=== PATIENT | male | born 1970 | race Caucasian/White ===

== ENCOUNTER → 2017-11-14 | Day surgery (SDC) | payer BC ==
[~2017-11-14] MED LIST: Lactated Ringers 1,000 ML IV SCH; Propofol 200 MG/20 ML SDV IV ONE
[2017-11-14 11:11] VITALS: BP 129/54
--- NOTE | 2017-11-14 13:00 | OR ---
DATE OF OPERATION: 11/14/2017 PREOPERATIVE DIAGNOSIS: 1. GASTROESOPHAGEAL REFLUX DISEASE. 2. ALTERED BOWEL HABITS. POSTOPERATIVE DIAGNOSIS: 1. GASTROESOPHAGEAL REFLUX DISEASE. 2. ALTERED BOWEL HABITS. SURGEON: Maico Montenegro MD PROCEDURE: 1. ESOPHAGOGASTRODUODENOSCOPY. 2. FULL-LENGTH COLONOSCOPY. ANESTHESIA: CARTON STAPLER due to chronic liver failure. COMPLICATIONS: None. SPECIMEN: None. FINDINGS: 1. Full-length EGD. 2. Chronic appearing gastritis. 3. Hiatal hernia with GERD. No esophagitis seen. 4. No obvious esophageal or gastric varices. 5. Full-length colonoscopy. 6. Multiple areas of angiodysplasia colon. RECOMMENDATIONS: Medical followup with Dr. Medellin. INDICATIONS: The patient has a recent diagnosis of alcoholic liver disease and has seen Hepatology in the next few months, Dr. Medellin because the patient has apparently been having some reflux and altered bowels, sent him for upper and lower endoscopy. It is worthy to note that the patient's last INR was 1.6. DESCRIPTION OF PROCEDURE: The patient was prepped and draped, placed in the left lateral decubitus position. A lubricated Olympus gastroscope was inserted over a bit and advanced to cricopharyngeus area and easily intubated in the esophagus. Esophageal lining was benign in its entire course. The Z-line was crisp around 37 cm. There was a mild sized hiatal hernia with some spontaneous GERD, but no distal esophagitis, stricturing, ulceration, or Bhakta's changes. No gross signs of any distal esophageal varices. The scope was advanced in the stomach through the pylorus into the second portion of the duodenum. This and the duodenal bulb were benign. The scope was brought back into the stomach, retroflexed the upper fundus and cardia essentially benign. Most of the mid and distal fundus and antrum showed changes of chronic gastritis without any other polyps, masses, or active peptic ulcer disease. Because of his elevated INR, no biopsies were done. Air was suctioned from the stomach and the scope was removed safely without complication. A lubricated Olympus colonoscope was then inserted and with relative ease advanced to the cecum, and the patient's bowel prep was adequate. We were able to visualize the ileocecal valve and appendiceal orifice. Upon withdrawal, the patient does have 2 larger areas of angiodysplasia, 1 right in the cecum which is smaller and the larger one just outside in the proximal ascending colon. He had a few 3 or 4 more smaller areas of angiodysplasia as well, 1 in the transverse, 2 in the sigmoid. These were not biopsied again due to the patient's elevated INR. Throughout the length of the colon, I could find no polyps, mass, ulceration, or bleeding sites. No signs of any active colitis or diverticular disease and no polyps found. Retroflexion of the scope in the rectum showed no anal lesions. Air was suctioned. Scope was removed without complication. WILEY/BA /[id number]
== END ==
LOC: CC.SDS 09:15
PROVIDERS: ATTEND Family Medicine
DX: K21.9 Gastro-esophageal reflux disease without esophagitis (principal); R19.4 Change in bowel habit; K29.50 Unspecified chronic gastritis without bleeding; K44.9 Diaphragmatic hernia without obstruction or gangrene; K55.20 Angiodysplasia of colon without hemorrhage
CPT/HCPCS: 43235; 45378; J7120; J2704

== ENCOUNTER 2018-03-18 11:57 | Emergency (ER) | payer BC ==
--- NOTE | 2018-03-18 12:38 | EDM.PDOC ---
ED HPI GENERAL MEDICAL PROBLEM - General Chief Complaint: Laceration Stated Complaint: LT HAND LACERATION Time Seen by Provider: 03/18/18 12:15 Source of Information: Reports: Patient History Limitations: Reports: No Limitations - History of Present Illness INITIAL COMMENTS - FREE TEXT/NARRATIVE: Sadi is a 47 yo male who presents to the ER with concerns of a cut to the base of his left thumb. States he was winterizing the sprayer and mower and ended up catching the base of his thumb on something. No loss of sensation or range of motion of thumb. He states he isn't exactly sure how deep it is. Tetanus was updated last year. is present as well and would like a sodium rechecked. She states last week his sodium was 115 and they elected to stop his furosemide and spironlactone. He states his liver is failing and is waiting to be put on a transplant list. He states since stopping the diuretics he has gained about 10 lbs from last week. Location: Reports: Upper Extremity, Left Treatments ITEM REPAIR MANAGER: Reports: Other (see below) Other Treatments ITEM REPAIR MANAGER: pressure held Left Hand Pain Score (Numeric/FACES): 2 - Related Data Allergies Allergy/AdvReac Type Severity Reaction Status Date / Time No Known Allergies Allergy Verified 03/18/18 12:24 Home Meds: Home Meds Amitriptyline HCl 25 mg PO BEDTIME 09/28/15 [History] Cholecalciferol (Vitamin D3) [Vitamin D3] 5,000 unit PO DAILY 09/28/15 [History] Ferrous Sulfate 325 mg PO Q48H 09/28/15 [History] Folic Acid 1 mg PO DAILY 10/03/17 [History] Insulin Detemir [Levemir] 30 unit SUBCUT BEDTIME #1 pen 02/10/18 [Rx] Lactulose [Cephulac] 20 gm PO TID 03/18/18 [History] Rifaximin [Xifaxan] 550 mg PO BID 03/18/18 [History] Simvastatin 10 mg PO BEDTIME 03/18/18 [History] Vitamin A 25,000 units PO DAILY 03/18/18 [History] Zinc 50 mg PO DAILY 03/18/18 [History] Past Medical History HEENT History: Reports: None Cardiovascular History: Reports: High Cholesterol, Hypertension Respiratory History: Reports: Sleep Apnea Gastrointestinal History: Reports: Cirrhosis Psychiatric History: Reports: Addiction Other Psychiatric History: alcohol addiction for past 30 years. Endocrine/Metabolic History: Reports: Diabetes, Type II - Past Surgical History HEENT Surgical History: Reports: Other (See Below) Other HEENT Surgeries/Procedures: WISDOM TEETH REMOVED. Male Surgical History: Reports: Vasectomy Social & Family History - Family History Endocrine/Metabolic: Reports: Diabetes, type II - Tobacco Use Smoking Status *Q: Never Smoker - Caffeine Use Caffeine Use: Reports: None - Recreational Drug Use Recreational Drug Use: No - Living Situation & Occupation Living situation: Reports: , with Significant Other Occupation: Employed ED ROS GENERAL - Review of Systems Review Of Systems: ROS reveals no pertinent complaints other than HPI. ED EXAM, SKIN/RASH Exam: See Below Exam Limited By: No Limitations General Appearance: Alert, No Apparent Distress Respiratory/Chest: No Respiratory Distress, Lungs Clear Cardiovascular: Regular Rate, Rhythm, No Murmur Peripheral Pulses: 2+: Posterior Tibial (L), Posterior Tibial (R), Dorsalis Pedis (L), Dorsalis Pedis (R) GI/Abdominal: Distended (ascites present). No: Rebound, Tender, Abnormal Bowel Sounds, Mass, Hepatomegaly, Splenomegaly Extremities: Normal Range of Motion, Other (Full strength and ROM of left thumb. ) Neurological: Alert, Oriented, Normal Cognition, No Motor/Sensory Deficits Psychiatric: Normal Affect, Normal Mood Skin: Wound/Incision (1cm ) ED SKIN PROCEDURES - Laceration/Wound Repair Left Proximal Digit - 1st (Thumb) Lac/Wound length In cm: 1 Appearance: Superficial Distal NVT: Neuro & Vascular Intact, No Tendon Injury Skin Prep: Chlorhexidine (Hibiciens) Exploration/Debridement/Repair: Wound Explored, In a Bloodless Field Closed with: Dermabond Tetanus Status Addressed: Yes Complications: No Course - Vital Signs Last Recorded V/S: Last Vital Signs Temp 98.9 F 03/18/18 12:07 Pulse 110 H 03/18/18 12:07 Resp 18 03/18/18 12:07 BP 158/80 H 03/18/18 12:07 Pulse Ox 94 L 03/18/18 12:07 - Orders/Labs/Meds Labs: Laboratory Tests 03/18/18 Range/Units 12:20 Sodium 139 (136-145) mEq/L Potassium 3.9 D (3.5-5.0) mEq/L Chloride 105 (98-106) mEq/L Carbon Dioxide 25 (21-32) mmol/L BUN 7 (7-18) mg/dL Creatinine 0.6 L (0.7-1.3) mg/dL Est Cr Clr Drug Dosing 138.82 mL/min Estimated GFR (MDRD) > 60 (>=60) mL/min Glucose 109 H (75-99) mg/dL Calcium 8.6 (8.4-10.1) mg/dL Departure - Departure Time of Disposition: 12:39 Disposition: Home, Self-Care 01 Clinical Impression: Laceration of thumb Qualifiers: Encounter type: initial encounter Damage to nail status: without damage Foreign body presence: without foreign body Laterality: left Qualified Code(s): S61.012A - Laceration without foreign body of left thumb without damage to nail , initial encounter - Discharge Information Instructions: Stitches, Emerson, or Adhesive Wound Closure, [id number], Wound Care, Adult Forms: ED Department Discharge Additional Instructions: 1) Wound closed with Dermabond today 2) Recommend refraining from soaking hand for next 48 hrs 3) Tetanus addressed and no update needed 4) If any sign of infection or concerns, recommend returning for reevaluation 5) Sodium is normal at 139 today, will discuss with Dr. Montenegro about restarting diuretic vs paracentesis. - Problem List & Annotations (1) Laceration of thumb SNOMED Code(s): 924200055 Code(s): S61.019A - LACERATION W/O FOREIGN BODY OF THMB W/O DAMAGE TO NAIL, INIT Status: Acute Qualifiers: Encounter type: initial encounter Damage to nail status: without damage Foreign body presence: without foreign body Laterality: left Qualified Code( s): S61.012A - Laceration without foreign body of left thumb without damage to nail, initial encounter - Assessment/Plan Plan: See procedural note and additional instructions.
[2018-03-18 12:48] VITALS: BP 166/79
== END 2018-03-18 12:50 | disposition home or self-care (01) ==
LOC: CC.ED 11:57
DX: S61.012A Laceration without foreign body of left thumb without damage to nail, initial encounter (principal); E78.00 Pure hypercholesterolemia, unspecified; I10 Essential (primary) hypertension; E11.9 Type 2 diabetes mellitus without complications; Z79.899 Other long term (current) drug therapy; Z79.4 Long term (current) use of insulin; W23.1XXA Caught, crushed, jammed, or pinched between stationary objects, initial encounter; K70.30 Alcoholic cirrhosis of liver without ascites
CPT/HCPCS: 12001; 36415; 80053; 99283

== ENCOUNTER 2018-04-17 02:10 | Emergency (ER) | payer BC ==
[2018-04-17 02:49] LABS: CHLORIDE,CL 89 mEq/L (98-106)
[2018-04-17 02:50] LABS: SODIUM,NA 123 mEq/L (136-145)
--- NOTE | 2018-04-17 02:51 | EDM.PDOC ---
ED HPI GENERAL MEDICAL PROBLEM - General Chief Complaint: Abdominal Pain Stated Complaint: "I vomitted some blood" Time Seen by Provider: 04/17/18 02:45 Source of Information: Reports: Patient, Family History Limitations: Reports: No Limitations - History of Present Illness INITIAL COMMENTS - FREE TEXT/NARRATIVE: Has not been feeling well since later yesterday. He vomited prior to coming in and it had bright red blood in it. states that it was in the toilet and it is hard to determine how much blood was in it. He did not take any zofran today. Feels weak and has been having low back pain that he applied ice to with minimal relief. No diarrhea. Has history of liver failure. Onset: Gradual Location: Reports: Abdomen Quality: Reports: Ache Lower Abdomen Pain Score (Numeric/FACES): 2 - Related Data Allergies Allergy/AdvReac Type Severity Reaction Status Date / Time No Known Allergies Allergy Verified 03/18/18 12:24 Home Meds: Home Meds Amitriptyline HCl 25 mg PO BEDTIME 09/28/15 [History] Cholecalciferol (Vitamin D3) [Vitamin D3] 5,000 unit PO DAILY 09/28/15 [History] Ferrous Sulfate 325 mg PO Q48H 09/28/15 [History] Folic Acid 1 mg PO DAILY 10/03/17 [History] Insulin Detemir [Levemir] 30 unit SUBCUT BEDTIME #1 pen 02/10/18 [Rx] Lactulose [Cephulac] 15 gm PO TID 03/18/18 [History] Rifaximin [Xifaxan] 550 mg PO BID 03/18/18 [History] Simvastatin 5 mg PO BEDTIME 03/18/18 [History] Vitamin A 25,000 units PO DAILY 03/18/18 [History] Zinc 50 mg PO DAILY 03/18/18 [History] Furosemide [Lasix] 60 mg PO DAILY 04/17/18 [History] Ondansetron [Zofran Odt] 8 mg PO Q6H PRN 04/17/18 [History] Spironolactone [Aldactone] 150 mg PO DAILY 04/17/18 [History] Past Medical History HEENT History: Reports: None Cardiovascular History: Reports: High Cholesterol, Hypertension Respiratory History: Reports: Sleep Apnea Gastrointestinal History: Reports: Chronic Constipation, Cirrhosis Psychiatric History: Reports: Addiction Other Psychiatric History: alcohol addiction for past 30 years. Endocrine/Metabolic History: Reports: Diabetes, Type II - Past Surgical History HEENT Surgical History: Reports: Other (See Below) Other HEENT Surgeries/Procedures: WISDOM TEETH REMOVED. Male Surgical History: Reports: Vasectomy Social & Family History - Family History Endocrine/Metabolic: Reports: Diabetes, type II - Tobacco Use Smoking Status *Q: Never Smoker Second Hand Smoke Exposure: No - Caffeine Use Caffeine Use: Reports: None - Recreational Drug Use Recreational Drug Use: No - Living Situation & Occupation Living situation: Reports: , with Significant Other Occupation: Employed ED ROS GENERAL - Review of Systems Review Of Systems: See Below Constitutional: Reports: Weakness. Denies: Fever, Chills Respiratory: Reports: No Symptoms Cardiovascular: Reports: No Symptoms GI/Abdominal: Reports: Hematemesis, Nausea, Vomiting. Denies: Black Stool Musculoskeletal: Reports: Back Pain Neurological: Denies: Confusion, Headache ED EXAM, GI/ABD - Physical Exam Exam: See Below Exam Limited By: No Limitations General Appearance: Alert, Mild Distress Throat/Mouth: Normal Inspection, Normal Oropharynx Head: Atraumatic, Normocephalic Neck: Supple Respiratory/Chest: No Respiratory Distress, Lungs Clear, Normal Breath Sounds Cardiovascular: Regular Rate, Rhythm, No Edema, Tachycardia GI/Abdominal Exam: Normal Bowel Sounds, Soft, Distended Extremities: No Pedal Edema Neurological: Alert, Oriented Skin Exam: Warm, Dry, Intact Course - Vital Signs Last Recorded V/S: Last Vital Signs Temp 98 F 04/17/18 08:50 Pulse 113 H 04/17/18 08:50 Resp 20 04/17/18 08:50 BP 150/69 H 04/17/18 08:50 Pulse Ox 94 L 04/17/18 08:50 - Orders/Labs/Meds Orders: Active Orders 24 hr Category Date Time Status Pantoprazole [ProTONIX IV] Med 04/17/18 09:00 Ordered 40 mg IVPUSH Q24H Sodium Chloride 0.9% [Normal Saline] 1,000 ml Med 04/17/18 03:15 Active IV ASDIRECTED Medication Orders Sodium Chloride (Normal Saline) 1,000 mls @ 100 mls/hr IV ASDIRECTED CESAR Last Admin: 04/17/18 03:31 Dose: 100 mls/hr Labs: Laboratory Tests 04/17/18 04/17/18 04/17/18 Range/Units 02:35 02:35 07:55 WBC 11.0 H (5.0-10.0) 10^3/uL RBC 4.65 (4.50-6.00) 10^6/uL Hgb 13.8 L 12.9 L (14.0-18.0) g/dL Hct 39.3 L 37.7 L (40.0-54.0) % MCV 84.5 (82.0-94.0) fL MCH 29.7 (27.0-32.0) pg MCHC 35.1 (33.0-38.0) g/dL RDW Coeff of Nidia 17.0 H (11.0-15.0) % Plt Count 101 L (150-400) 10^3/uL Neut % (Auto) 76.5 (35-85) % Lymph % (Auto) 9.3 L (10-55) % [place] % (Auto) 11.2 (0-16) % Eos % (Auto) 2.5 (0-5) % Baso % (Auto) 0.5 (0-3) % Neut # (Auto) 8.39 H (1.80-7.00) 10^3/uL Lymph # (Auto) 1.02 (1.00-4.80) 10^3/uL [place] # (Auto) 1.23 H (0.00-0.80) 10^3/uL Eos # (Auto) 0.27 (0.00-0.45) 10^3/uL Baso # (Auto) 0.05 10^3/uL Sodium 123 L* (136-145) mEq/L Potassium 4.2 (3.5-5.0) mEq/L Chloride 89 L (98-106) mEq/L Carbon Dioxide 26 (21-32) mmol/L BUN 15 D (7-18) mg/dL Creatinine 0.7 (0.7-1.3) mg/dL Est Cr Clr Drug Dosing TNP Estimated GFR (MDRD) > 60 (>=60) mL/min Glucose 160 H D (75-99) mg/dL Calcium 9.3 (8.4-10.1) mg/dL Meds: Medications Generic Name Dose Route Start Last Admin Trade Name Freq PRN Reason Stop Dose Admin Sodium Chloride 1,000 mls @ 100 mls/hr 04/17/18 03:15 04/17/18 03:31 Normal Saline IV 100 mls/hr ASDIRECTED CESAR Administration Discontinued Medications Generic Name Dose Route Start Last Admin Trade Name Nayely PRN Reason Stop Dose Admin Ondansetron HCl 8 mg/ Sodium 54 mls @ 100 mls/hr 04/17/18 03:03 04/17/18 03: 30 Chloride IV 04/17/18 03:35 100 mls/hr NOW STA Administration - Re-Assessments/Exams Free Text/Narrative Re-Assessment/Exam: 04/17/18 03:02 sodium is low. Will keep as extended ER and start NS at 100 ml hour and give zofran 8 mg IV now for the nausea and monitor for any further vomiting or blood. Hgb currently is stable. 04/17/18 08:[address] Montenegro and he feels that he should be transferred as he will not scope him due to his comorbidities. Did discuss case with Dr. Avalos as he is a mutual patient of both of them and he feels that he should be scoped as he is liver failure patient and on the transplant list at [place]. There is a concern for varicosities that potential can bleed. BP is stable, pt is tachycardiac. Hgb is stable and this info was relayed to Dr. Avalos. [address] Dr[address] De Anda at [facility] did accept the patient in transfer. He will transfer per ALS with IV fluids and monitoring to watch for further bleeding. risks of transfer were discussed with pt and to include MVC in route, worsening of condition. Risks of staying would include further bleeding that would not be able to be controlled here and worsening of conditioning. Benefits of transfer would include specialists that would care for him and higher level of care that is available there. Pt and both understand above and request to be transferred. Departure - Departure Time of Disposition: 09:10 Disposition: DC/Tfer to Acute Hospital 02 Condition: Serious Clinical Impression: GI bleed Qualifiers: GI bleed type/associated pathology: unspecified gastrointestinal hemorrhage type Qualified Code(s): K92.2 - Gastrointestinal hemorrhage, unspecified Cirrhosis, alcoholic Qualifiers: Ascites presence: with ascites Qualified Code(s): K70.31 - Alcoholic cirrhosis of liver with ascites Diabetes mellitus Qualifiers: Diabetes mellitus type: type 2 Diabetes mellitus longwall headgate operator insulin use: with longwall headgate operator use Diabetes mellitus complication status: with other specified complication Qualified Code(s): E11.69 - Type 2 diabetes mellitus with other specified complication - Discharge Information *PRESCRIPTION DRUG MONITORING PROGRAM REVIEWED*: No *COPY OF PRESCRIPTION DRUG MONITORING REPORT IN PATIENT SRAVANTHI: No Referrals: Maico oMntenegro MD [Primary Care Provider] - Forms: ED Department Discharge Additional Instructions: Transfer per [facility] to [facility] to Dr. Adilson mcclellan MD. - Problem List & Annotations (1) GI bleed SNOMED Code(s): 56560940 Code(s): K92.2 - GASTROINTESTINAL HEMORRHAGE, UNSPECIFIED Status: Acute Priority: High Current Visit: Yes Qualifiers: GI bleed type/associated pathology: unspecified gastrointestinal hemorrhage type Qualified Code(s): K92.2 - Gastrointestinal hemorrhage, unspecified (2) Cirrhosis, alcoholic SNOMED Code(s): 658000648 Code(s): K70.30 - ALCOHOLIC CIRRHOSIS OF LIVER WITHOUT ASCITES Status: Chronic Priority: High Current Visit: Yes Qualifiers: Ascites presence: with ascites Qualified Code(s): K70.31 - Alcoholic cirrhosis of liver with ascites (3) Diabetes mellitus SNOMED Code(s): 54169686 Code(s): E11.9 - TYPE 2 DIABETES MELLITUS WITHOUT COMPLICATIONS Status: Chronic Priority: Medium Current Visit: Yes Qualifiers: Diabetes mellitus type: type 2 Diabetes mellitus longwall headgate operator insulin use: with longwall headgate operator use Diabetes mellitus complication status: with other specified complication Qualified Code(s): E11.69 - Type 2 diabetes mellitus with other specified complication; Z79.4 - remote computer terminal operator (current) use of insulin - Problem List Review Problem List Initiated/Reviewed/Updated: Yes - My Orders Last 24 Hours: My Active Orders 04/17/18 03:15 Sodium Chloride 0.9% [Normal Saline] 1,000 ml IV ASDIRECTED 04/17/18 09:00 Pantoprazole [ProTONIX IV] 40 mg IVPUSH Q24H - Assessment/Plan Last 24 Hours: My Active Orders 04/17/18 03:15 Sodium Chloride 0.9% [Normal Saline] 1,000 ml IV ASDIRECTED 04/17/18 09:00 Pantoprazole [ProTONIX IV] 40 mg IVPUSH Q24H
[2018-04-17] MEDS ORDERED: Ondansetron 8 MG in Sodium Chloride 0.9% 50 ML IV STA (03:03)
[2018-04-17] MEDS ORDERED: Sodium Chloride 0.9% 1,000 ML IV SCH (03:15)
[2018-04-17 08:50] VITALS: BP 150/69
[2018-04-17] MEDS ORDERED: Pantoprazole 40 MG Vial IVPUSH SCH (09:00)
== END 2018-04-17 09:54 ==
LOC: CC.ED 02:10
DX: K92.2 Gastrointestinal hemorrhage, unspecified (principal); K70.31 Alcoholic cirrhosis of liver with ascites; E78.00 Pure hypercholesterolemia, unspecified; I10 Essential (primary) hypertension; E11.9 Type 2 diabetes mellitus without complications; Z79.899 Other long term (current) drug therapy; Z79.4 Long term (current) use of insulin
CPT/HCPCS: 36415; 80048; 85014; 85018; 85025; 99285; C9113; J2405; J7030; J7050; 96361; 96365; 96375

== ENCOUNTER 2019-05-09 05:57 | Emergency (ER) | payer BC ==
--- NOTE | 2019-05-09 06:26 | EDM.PDOC ---
ED HPI GENERAL MEDICAL PROBLEM - General Chief Complaint: Gastrointestinal Problem Stated Complaint: bloody emesis Time Seen by Provider: 05/09/19 06:15 Source of Information: Reports: Patient History Limitations: Reports: No Limitations - History of Present Illness INITIAL COMMENTS - FREE TEXT/NARRATIVE: This patient is a 48 year old male that presents to the ER. Patient is with at bedside. Patient helps with patient history. Patient has known alcohol induced liver failure and currently on the transplant list. Patient reports that he woke this morning at 5:30am and vomited x1. Patient reports there was a lot of vomit with clotting and the blood was mixed bright red and dark in color. reports patient back about one year ago had same occur and was sent to [facility] and had GI bleeding that required banding performed. reports patient has had several banding procedures performed over the year. She reports the latest was in December at [facility]. reports that his color looks a little off today. She reports he appears a little more pale, and maybe a little more jaundiced than his baseline. She reports lately his affect has been flat. His EGD were done 04/18/18, 05/29/18, 06/19/17. 09/30/18, 12/31. reports patient has been sober since July 2017. Patient reports having some mild RUQ pain that he reports is his liver pain. Onset: Today Onset Date: 05/09/19 Onset Time: 05:30 Severity: Moderate Improves with: Reports: None Worsens with: Reports: None Associated Symptoms: Reports: Nausea/Vomiting. Denies: Confusion, Chest Pain, Cough, cough w sputum, Diaphoresis, Fever/Chills, Headaches, Rash, Seizure, Shortness of Breath, Syncope Right Upper Abdomen Pain Score (Numeric/FACES): 4 - Related Data Allergies Allergy/AdvReac Type Severity Reaction Status Date / Time No Known Allergies Allergy Verified 05/09/19 05:58 Home Meds: Home Meds Amitriptyline HCl 25 mg PO BEDTIME 09/28/15 [History] Cholecalciferol (Vitamin D3) [Vitamin D3] 5,000 unit PO DAILY 09/28/15 [History] Ferrous Sulfate 325 mg PO DAILY 09/28/15 [History] Folic Acid 1 mg PO DAILY 10/03/17 [History] Lactulose [Cephulac] 15 gm PO BID 03/18/18 [History] Rifaximin [Xifaxan] 550 mg PO BID 03/18/18 [History] Vitamin A 25,000 units PO DAILY 03/18/18 [History] Zinc 50 mg PO DAILY 03/18/18 [History] Furosemide [Lasix] 40 mg PO DAILY 04/17/18 [History] Ondansetron [Zofran Odt] 8 mg PO Q6H PRN 04/17/18 [History] Spironolactone [Aldactone] 50 mg PO DAILY 04/17/18 [History] Calcium Citrate/Vitamin D3 [Calcium Citrate - Vit D3 Tab] 2 tab PO BID 05/09/19 [History] Insulin Detemir [Levemir Flextouch] 20 units SQ DAILY 05/09/19 [History] L Acidophil/B Lactis/B Longum [Florajen3] 1 cap PO DAILY 05/09/19 [History] Magnesium Chloride [Slow-Mag] 2 tab PO BID 05/09/19 [History] Rosuvastatin [Crestor] 10 mg PO DAILY 05/09/19 [History] metFORMIN HCl [Metformin ER Osmotic] 1,000 mg PO BID 05/09/19 [History] Past Medical History HEENT History: Reports: Impaired Vision Cardiovascular History: Reports: High Cholesterol, Hypertension Respiratory History: Reports: Sleep Apnea Gastrointestinal History: Reports: Chronic Constipation, Cirrhosis, GI Bleed Psychiatric History: Reports: Addiction Other Psychiatric History: alcohol addiction for past 30 years. Endocrine/Metabolic History: Reports: Diabetes, Type II - Past Surgical History HEENT Surgical History: Reports: Other (See Below) Other HEENT Surgeries/Procedures: WISDOM TEETH REMOVED. Male Surgical History: Reports: Vasectomy Social & Family History - Family History Endocrine/Metabolic: Reports: Diabetes, type II - Tobacco Use Smoking Status *Q: Never Smoker - Caffeine Use Caffeine Use: Reports: None - Living Situation & Occupation Living situation: Reports: , with Significant Other Occupation: Employed [employer] - Review of Systems Review Of Systems: See Below Constitutional: Reports: No Symptoms HEENT: Reports: No Symptoms Respiratory: Reports: No Symptoms Cardiovascular: Reports: No Symptoms Endocrine: Reports: No Symptoms GI/Abdominal: Reports: Abdominal Pain, Nausea, Vomiting : Reports: No Symptoms Musculoskeletal: Reports: No Symptoms Skin: Reports: Jaundice, Pallor, Change in Color Neurological: Reports: No Symptoms Psychiatric: Reports: No Symptoms Hematologic/Lymphatic: Reports: No Symptoms Immunologic: Reports: No Symptoms ED EXAM, GI/ABD - Physical Exam Exam: See Below Exam Limited By: No Limitations General Appearance: Alert, WD/WN, No Apparent Distress, Other (appears chroniclly ill liver) Eyes: Bilateral: Normal Appearance Ears: Normal External Exam, Normal Canal, Hearing Grossly Normal, Normal TMs Nose: Normal Inspection, Normal Mucosa, No Blood Throat/Mouth: Normal Inspection, Normal Lips, Normal Teeth, Normal Gums, Normal Oropharynx, Normal Voice, No Airway Compromise Head: Atraumatic, Normocephalic Neck: Normal Inspection, Supple, Non-Tender, Full Range of Motion Respiratory/Chest: No Respiratory Distress, Lungs Clear, Normal Breath Sounds, No Accessory Muscle Use, Chest Non-Tender Cardiovascular: Normal Peripheral Pulses, No Edema, No Gallop, No JVD, No Murmur , No Rub, Tachycardia (102 on exam) GI/Abdominal Exam: Normal Bowel Sounds, Distended, Tender (RUQ mild), Hepatomegaly Back Exam: Normal Inspection, Full Range of Motion Extremities: Normal Inspection, Normal Range of Motion, Non-Tender, No Pedal Edema, Normal Capillary Refill Neurological: Alert, Oriented, Normal Cognition, No Motor/Sensory Deficits Psychiatric: Flat Affect Skin Exam: Warm, Dry, Intact, No Rash, Jaundice (mild), Pallor Lymphatic: No Adenopathy Course - Vital Signs Last Recorded V/S: Last Vital Signs Temp 97.5 F 05/09/19 06:04 Pulse 103 H 05/09/19 07:19 Resp 18 05/09/19 07:19 BP 142/62 H 05/09/19 07:19 Pulse Ox 92 L 05/09/19 07:19 - Orders/Labs/Meds Orders: Active Orders 24 hr Category Date Time Status AMMONIA [REF] Stat Lab 05/09/19 06:30 Received RED BLOOD CELLS LP [BBK] Stat Lab 05/09/19 06:30 Received TYPE AND SCREEN [BBK] Stat Lab 05/09/19 06:30 Received Pantoprazole [ProTONIX IV] 80 mg Med 05/09/19 06:45 Active Sodium Chloride 0.9% [Normal Saline] 100 ml IV .CONTINUOUS Sodium Chloride 0.9% [Normal Saline] 1,000 ml Med 05/09/19 07:12 Active IV .BOLUS Medication Orders Pantoprazole Sodium 80 mg/ (Sodium Chloride) 100 mls @ 10 mls/hr IV .CONTINUOUS CESAR Last Admin: 05/09/19 06:50 Dose: 10 mls/hr Sodium Chloride (Normal Saline) 1,000 mls @ 150 mls/hr IV .BOLUS ONE Stop: 05/09/19 13:51 Labs: Laboratory Tests 05/09/19 05/09/19 05/09/19 Range/Units 06:30 06:30 06:30 WBC 7.6 (5.0-10.0) 10^3/uL RBC 3.45 L (4.50-6.00) 10^6/uL Hgb 10.7 L (14.0-18.0) g/dL Hct 31.8 L (40.0-54.0) % MCV 92.2 (82.0-94.0) fL MCH 31.0 (27.0-32.0) pg MCHC 33.6 (33.0-38.0) g/dL RDW Coeff of Nidia 17.8 H (11.0-15.0) % Plt Count 99 L (150-400) 10^3/uL Neut % (Auto) 73.5 (35-85) % Lymph % (Auto) 12.6 (10-55) % Lamar % (Auto) 10.9 (0-16) % Eos % (Auto) 2.6 (0-5) % Baso % (Auto) 0.4 (0-3) % Neut # (Auto) 5.59 (1.80-7.00) 10^3/uL Lymph # (Auto) 0.96 L (1.00-4.80) 10^3/uL Lamar # (Auto) 0.83 H (0.00-0.80) 10^3/uL Eos # (Auto) 0.20 (0.00-0.45) 10^3/uL Baso # (Auto) 0.03 10^3/uL PT (9.7-12.3) SEC INR (0.92-1.18) APTT (23.2-32.3) SEC Sodium 140 (136-145) mEq/L Potassium 4.2 (3.5-5.0) mEq/L Chloride 104 (98-106) mEq/L Carbon Dioxide 22 (21-32) mmol/L BUN 20 H D (7-18) mg/dL Creatinine 0.8 (0.7-1.3) mg/dL Est Cr Clr Drug Dosing 103.01 mL/min Estimated GFR (MDRD) > 60 (>=60) mL/min Glucose 121 H (75-99) mg/dL Calcium 9.6 (8.4-10.1) mg/dL Total Bilirubin 1.9 H (0.0-1.0) mg/dL AST 57 H (15-37) U/L ALT 31 (12-78) U/L Alkaline Phosphatase 178 H (46-116) U/L Total Protein 6.6 (6.4-8.2) g/dL Albumin 2.5 L (3.4-5.0) g/dL Blood Type O NEGATIVE Gel Antibody Screen Negative Crossmatch See Detail 05/09/19 Range/Units 06:35 WBC (5.0-10.0) 10^3/uL RBC (4.50-6.00) 10^6/uL Hgb (14.0-18.0) g/dL Hct (40.0-54.0) % MCV (82.0-94.0) fL MCH (27.0-32.0) pg MCHC (33.0-38.0) g/dL RDW Coeff of Nidia (11.0-15.0) % Plt Count (150-400) 10^3/uL Neut % (Auto) (35-85) % Lymph % (Auto) (10-55) % Lamar % (Auto) (0-16) % Eos % (Auto) (0-5) % Baso % (Auto) (0-3) % Neut # (Auto) (1.80-7.00) 10^3/uL Lymph # (Auto) (1.00-4.80) 10^3/uL Lamar # (Auto) (0.00-0.80) 10^3/uL Eos # (Auto) (0.00-0.45) 10^3/uL Baso # (Auto) 10^3/uL PT 13.5 H (9.7-12.3) SEC INR 1.33 H (0.92-1.18) APTT 29.9 (23.2-32.3) SEC Sodium (136-145) mEq/L Potassium (3.5-5.0) mEq/L Chloride (98-106) mEq/L Carbon Dioxide (21-32) mmol/L BUN (7-18) mg/dL Creatinine (0.7-1.3) mg/dL Est Cr Clr Drug Dosing mL/min Estimated GFR (MDRD) (>=60) mL/min Glucose (75-99) mg/dL Calcium (8.4-10.1) mg/dL Total Bilirubin (0.0-1.0) mg/dL AST (15-37) U/L ALT (12-78) U/L Alkaline Phosphatase (46-116) U/L Total Protein (6.4-8.2) g/dL Albumin (3.4-5.0) g/dL Blood Type Gel Antibody Screen Crossmatch Meds: Medications Generic Name Dose Route Start Last Admin Trade Name Freq PRN Reason Stop Dose Admin Pantoprazole Sodium 80 mg/ 100 mls @ 10 mls/hr 05/09/19 06:45 05/09/19 06:50 Sodium Chloride IV 10 mls/hr .CONTINUOUS CESAR Administration Sodium Chloride 1,000 mls @ 150 mls/hr 05/09/19 07:12 Normal Saline IV 05/09/19 13:51 .BOLUS ONE Discontinued Medications Generic Name Dose Route Start Last Admin Trade Name Freq PRN Reason Stop Dose Admin Furosemide 40 mg 05/09/19 07:16 Lasix IVPUSH 05/09/19 07:17 ONETIME ONE Ondansetron HCl 4 mg 05/09/19 06:47 05/09/19 06:55 Zofran IVPUSH 05/09/19 06:48 4 mg NOW STA Administration Pantoprazole Sodium 80 mg 05/09/19 06:36 05/09/19 06:46 Protonix Iv IVPUSH 05/09/19 06:37 80 mg ONETIME ONE Administration - Re-Assessments/Exams Free Text/Narrative Re-Assessment/Exam: 05/09/19 06:35 Protonix bolus and gtt ordered for this patient. Discussed with patient need for medication and risks. Discussed transfer. 05/09/19 06:40 Patient is being transferred to [facility]. I will call for accepting. Risk vs benefits explained to the patient. The risk of transfer is mvc, continued bleeding, , worsening of condition, vomiting, cardiac arrest. The benefits of transfer are higher level of care, ability to scope and correct the bleeding , specialist. The risks of staying in [place] is no specialist, no ability to scope, no ability to stop bleeding, . The benefits of staying in [place] is close to home. The risk of transfer to [facility] is not closest higher level of care with ability to stop the bleeding, may occur due to long transfer time. 05/09/[address] Cochran with [facility], he reports since patient is thrombocytopenic he will check with GI to see if will also accept. He reports that we need to fly this patient. Within 2 minutes, [facility] has called back and accepted this patient. Dr. Cochran has accepted the patient. Flight has been called. 05/09/19 07:10 Explained risk vs benefits of getting blood. Patient oxygen saturation is now 88 % RA, was placed 2L NC and now is 93%. HR is 102. BP is 142/62. and patient have accepted blood. Will also give Lasix. Departure - Departure Time of Disposition: 07:34 Disposition: DC/Tfer to Acute Hospital 02 Condition: Serious Clinical Impression: GI bleed Qualifiers: GI bleed type/associated pathology: unspecified gastrointestinal hemorrhage type Qualified Code(s): K92.2 - Gastrointestinal hemorrhage, unspecified Cirrhosis, alcoholic Qualifiers: Ascites presence: with ascites Qualified Code(s): K70.31 - Alcoholic cirrhosis of liver with ascites - Discharge Information *PRESCRIPTION DRUG MONITORING PROGRAM REVIEWED*: Not Applicable *COPY OF PRESCRIPTION DRUG MONITORING REPORT IN PATIENT SRAVANTHI: Not Applicable Referrals: Maico Montenegro MD [Primary Care Provider] - Forms: ED Department Discharge - My Orders Last 24 Hours: My Active Orders 05/09/19 06:30 AMMONIA [REF] Stat RED BLOOD CELLS LP [BBK] Stat TYPE AND SCREEN [BBK] Stat 05/09/19 06:45 Pantoprazole [ProTONIX IV] 80 mg Sodium Chloride 0.9% [Normal Saline] 100 ml IV .CONTINUOUS 05/09/19 07:12 Sodium Chloride 0.9% [Normal Saline] 1,000 ml IV .BOLUS - Assessment/Plan Last 24 Hours: My Active Orders 05/09/19 06:30 AMMONIA [REF] Stat RED BLOOD CELLS LP [BBK] Stat TYPE AND SCREEN [BBK] Stat 05/09/19 06:45 Pantoprazole [ProTONIX IV] 80 mg Sodium Chloride 0.9% [Normal Saline] 100 ml IV .CONTINUOUS 05/09/19 07:12 Sodium Chloride 0.9% [Normal Saline] 1,000 ml IV .BOLUS Plan: PLEASE SEE RN NOTE FOR PFSH.
[2019-05-09] MEDS ORDERED: Pantoprazole 40 MG Vial IVPUSH ONE (06:36)
[2019-05-09] MEDS ORDERED: Pantoprazole 80 MG in Sodium Chloride 0.9% 100 ML IV SCH (06:45)
[2019-05-09] MEDS ORDERED: Ondansetron 4 MG/2 ML SDV IVPUSH STA (06:47)
[2019-05-09 06:49] LABS: CHLORIDE,CL 104 mEq/L (98-106); SODIUM,NA 140 mEq/L (136-145)
[2019-05-09] MEDS ORDERED: Sodium Chloride 0.9% 1,000 ML IV ONE (07:12)
[2019-05-09] MEDS ORDERED: Furosemide 40 MG/4 ML VIAL IVPUSH ONE (07:16)
[2019-05-09 08:04] VITALS: PULSE 102
[2019-05-09 08:30] VITALS: BP 131/63
== END 2019-05-09 08:50 ==
LOC: CC.ED 05:57
DX: K92.2 Gastrointestinal hemorrhage, unspecified (principal); K70.31 Alcoholic cirrhosis of liver with ascites; I10 Essential (primary) hypertension; E11.9 Type 2 diabetes mellitus without complications; E78.00 Pure hypercholesterolemia, unspecified; Z79.4 Long term (current) use of insulin; Z79.899 Other long term (current) drug therapy
CPT/HCPCS: 36415; 36430; 80053; 82140; 85025; 85610; 85730; 86850; 86900; 86901; 86920; 86922; 96365; 96366; 96375; 96376; 99285; C9113; J1940; J2405; J7030; J7050; P9016

== ENCOUNTER 2020-11-02 02:22 | Emergency (ER) | payer MEDICARE, OTHER, MEDICAID ==
[2020-11-02] MEDS ORDERED: Iopamidol 755 Mg/ML 100 ML Bottle IVPUSH ONE (02:50)
--- NOTE | 2020-11-02 02:51 | EDM.PDOC ---
ED HPI GENERAL MEDICAL PROBLEM - General Chief Complaint: Gastrointestinal Problem Stated Complaint: nausea/vomiting/malaise Time Seen by Provider: 11/02/20 02:29 Source of Information: Reports: Patient, Family History Limitations: Reports: No Limitations - History of Present Illness INITIAL COMMENTS - FREE TEXT/NARRATIVE: Sadi is a 50 year old male who presents to ER with complaints of increased abdominal pain. Patient has history of liver cirrhosis, had recent pericentesis on Friday as had been having increased nausea and vomiting for the last 6 months. Having the tap has helped this in the past but has seemed to persist despite procedure. History of esophageal varices, has EGD every 3-5 months, last one banded one variceal. Started having more abdominal pain earlier this evening. more concerned after had a large coffee ground emesis. Has loose stools but not unusual for him as he takes lactulose. No blood noted in his stools. Denies increased bloating. Not been eating well as of late. No fevers. Onset: Gradual Duration: Day(s):, Getting Worse Location: Reports: Abdomen Quality: Reports: Ache Severity: Moderate Associated Symptoms: Reports: Loss of Appetite, Malaise, Nausea/Vomiting, Weakness. Denies: Confusion, Chest Pain, Fever/Chills, Shortness of Breath - Related Data Allergies Allergy/AdvReac Type Severity Reaction Status Date / Time No Known Allergies Allergy Verified 11/02/20 02:31 Home Meds: Home Meds Amitriptyline HCl 25 mg PO BEDTIME 09/28/15 [History] Cholecalciferol (Vitamin D3) [Vitamin D3] 5,000 unit PO Q48H 09/28/15 [History] Ferrous Sulfate 325 mg PO DAILY 09/28/15 [History] Folic Acid 1 mg PO DAILY 10/03/17 [History] Lactulose [Cephulac] 30 ml PO BID 03/18/18 [History] Rifaximin [Xifaxan] 550 mg PO BID 03/18/18 [History] Vitamin A 25,000 units PO DAILY 03/18/18 [History] Zinc 50 mg PO DAILY 03/18/18 [History] Ondansetron [Zofran Odt] 8 mg PO Q6H PRN 04/17/18 [History] Spironolactone [Aldactone] 100 mg PO DAILY 04/17/18 [History] Calcium Citrate/Vitamin D3 [Calcium Citrate - Vit D3 Tab] 2 tab PO BID 05/09/19 [History] L Acidophil/B Lactis/B Longum [Florajen3] 1 cap PO DAILY 05/09/19 [History] Magnesium Chloride [Slow-Mag] 2 tab PO BID 05/09/19 [History] Rosuvastatin [Crestor] 10 mg PO DAILY 05/09/19 [History] metFORMIN HCl [Metformin ER Osmotic] 1,000 mg PO BID 05/09/19 [History] Dulaglutide [Trulicity] 1.5 mg SQ WEEKLY 11/02/20 [History] Furosemide [Lasix] 40 mg PO DAILY 11/02/20 [History] Pantoprazole Sodium [Protonix] 40 mg PO DAILY 11/02/20 [History] Propranolol [Inderal] 60 mg PO BID 11/02/20 [History] Past Medical History HEENT History: Reports: Impaired Vision Cardiovascular History: Reports: High Cholesterol, Hypertension Respiratory History: Reports: Sleep Apnea Gastrointestinal History: Reports: Chronic Constipation, Cirrhosis, GI Bleed Psychiatric History: Reports: Addiction Other Psychiatric History: alcohol addiction for past 30 years. Endocrine/Metabolic History: Reports: Diabetes, Type II - Past Surgical History HEENT Surgical History: Reports: Other (See Below) Other HEENT Surgeries/Procedures: WISDOM TEETH REMOVED. Male Surgical History: Reports: Vasectomy Social & Family History - Family History Endocrine/Metabolic: Reports: Diabetes, type II - Tobacco Use Tobacco Use Status *Q: Unknown Ever Used Tobacco - Caffeine Use Caffeine Use: Reports: None - Living Situation & Occupation Living situation: Reports: , with Significant Other Occupation: Employed [employer] - Review of Systems Review Of Systems: See Below Constitutional: Reports: Malaise, Weakness, Fatigue, Decreased Appetite. Denies: Fever, Chills HEENT: Denies: Ear Pain, Sinus Problem, Throat Pain, Vertigo Respiratory: Denies: Shortness of Breath, Cough Cardiovascular: Denies: Chest Pain, Edema, Lightheadedness, Syncope Endocrine: Reports: Fatigue GI/Abdominal: Reports: Abdominal Pain, Diarrhea, Hematemesis, Nausea, Vomiting. Denies: Black Stool, Bloody Stool : Reports: No Symptoms Musculoskeletal: Reports: No Symptoms Skin: Reports: Jaundice ( does not note worsening of jaundice) Neurological: Reports: No Symptoms Psychiatric: Reports: No Symptoms ED EXAM, GI/ABD - Physical Exam Exam: See Below Exam Limited By: No Limitations General Appearance: Alert, WD/WN, No Apparent Distress Ears: Normal External Exam, Normal TMs Nose: Normal Inspection, Normal Mucosa, No Blood Throat/Mouth: Normal Inspection, Normal Oropharynx Head: Normocephalic Neck: Normal Inspection, Supple, Non-Tender Respiratory/Chest: No Respiratory Distress, Lungs Clear, Normal Breath Sounds Cardiovascular: Regular Rate, Rhythm GI/Abdominal Exam: Soft, Non-Tender, Distended, Abnormal Bowel Sounds Rectal (Males) Exam: Normal Exam, Heme + Stool Neurological: Alert, Oriented Skin Exam: Warm, Dry, Jaundice Course - Vital Signs Last Recorded V/S: Last Vital Signs Temp 97.2 F 11/02/20 03:19 Pulse 74 11/02/20 03:19 Resp 16 11/02/20 03:19 BP 141/49 H 11/02/20 03:19 Pulse Ox 93 L 11/02/20 03:19 - Orders/Labs/Meds Orders: Active Orders 24 hr Category Date Time Status Abdomen Pelvis w Cont [CT] Stat Exams 11/02/20 02:45 Taken cefTRIAXone [Rocephin] Med 11/02/20 04:00 Active 1 gm IVPUSH Q24H Medication Orders Ceftriaxone Sodium (Ceftriaxone 1 Gm Vial) 1 gm IVPUSH Q24H CESAR Labs: Laboratory Tests 11/02/20 11/02/20 11/02/20 Range/Units 02:43 02:43 02:52 WBC 7.5 (5.0-10.0) 10^3/uL RBC 3.27 L (4.50-6.00) 10^6/uL Hgb 8.7 L (14.0-18.0) g/dL Hct 27.2 L (40.0-54.0) % MCV 83.2 (82.0-94.0) fL MCH 26.6 L (27.0-32.0) pg MCHC 32.0 L (33.0-38.0) g/dL RDW Coeff of Nidia 16.7 H (11.0-15.0) % Plt Count 208 (150-400) 10^3/uL Neut % (Auto) 71.5 (35-85) % Lymph % (Auto) 11.7 (10-55) % [place] % (Auto) 13.8 (0-16) % Eos % (Auto) 2.3 (0-5) % Baso % (Auto) 0.7 (0-3) % Neut # (Auto) 5.33 (1.80-7.00) 10^3/uL Lymph # (Auto) 0.87 L (1.00-4.80) 10^3/uL Medina # (Auto) 1.03 H (0.00-0.80) 10^3/uL Eos # (Auto) 0.17 (0.00-0.45) 10^3/uL Baso # (Auto) 0.05 10^3/uL Sodium 131 L (136-145) mEq/L Potassium 4.3 (3.5-5.0) mEq/L Chloride 94 L (98-106) mEq/L Carbon Dioxide 21 (21-32) mmol/L BUN 23 H D (7-18) mg/dL Creatinine 1.6 H (0.7-1.3) mg/dL Est Cr Clr Drug Dosing 50.40 mL/min Estimated GFR (MDRD) 46 L (>=60) mL/min Glucose 150 H (75-99) mg/dL Calcium 9.7 (8.4-10.1) mg/dL Total Bilirubin 2.0 H (0.0-1.0) mg/dL AST 38 H (15-37) U/L ALT 26 (12-78) U/L Alkaline Phosphatase 151 H (46-116) U/L C-Reactive Protein 2.4 H (0.2-0.8) mg/dL Total Protein 6.6 (6.4-8.2) g/dL Albumin 2.4 L (3.4-5.0) g/dL Amylase 28 (25-115) U/L Lipase 169 (73-393) U/L Urine Color Dark yellow (YELLOW) Urine Appearance Clear (CLEAR) Urine pH 5.5 (4.5-8.0) Ur Specific [place] >= 1.030 H (1.003-1.020) Urine Protein 100 H (NEGATIVE) mg/dL Urine Glucose (UA) Negative (NEGATIVE) mg/dL Urine Ketones Trace H (NEGATIVE) mg/dL Urine Occult Blood Trace-intact H (NEGATIVE) Urine Nitrite Negative (NEGATIVE) Urine Bilirubin Negative (NEGATIVE) Urine Urobilinogen 0.2 (0.2-1.0) EU/dL Ur Leukocyte Esterase Negative (NEGATIVE) Urine RBC 0-5 (0-5) /HPF Urine WBC Not seen (0-5) /HPF Ur Epithelial Cells Moderate H (NOT SEEN) /HPF Granular Casts (Auto) Moderate (NOT SEEN) /LPF Urine Mucus Moderate H (NOT SEEN) /HPF Meds: Medications Generic Name Dose Route Start Last Admin Trade Name Freq PRN Reason Stop Dose Admin Ceftriaxone Sodium 1 gm 11/02/20 04:00 Ceftriaxone 1 Gm Vial IVPUSH Q24H CESAR Discontinued Medications Generic Name Dose Route Start Last Admin Trade Name Freq PRN Reason Stop Dose Admin Iopamidol 100 ml 11/02/20 02:50 11/02/20 03:16 Iopamidol 755 Mg/Ml 100 Ml Bottle IVPUSH 11/02/20 02:51 100 ml ONETIME ONE Administration Pantoprazole Sodium 80 mg 11/02/20 03:52 Pantoprazole 40 Mg Vial IVPUSH 11/02/20 03:53 ONETIME ONE - Re-Assessments/Exams Free Text/Narrative Re-Assessment/Exam: 11/02/20 0300- Labs note drop in hemoglobin from 10.4 to 8.7. WBC stable, platelets stable. Creatinine 1.6, slight change from 1.4 recently. Albumin low, CRP 2.4, bilirubin 2.0 but stable. 0340-CT scan shows small hematoma to left iliac crest. Shows ascites, portal hypertension, cirrhosis, similar to previous evaluation. 0345-Consulted with Dr. Grey at [facility]. History given. Advised IV Protonix and Rocephin and transfer for further work up. Departure - Departure Time of Disposition: 04:10 Disposition: DC/Tfer to Acute Hospital 02 Condition: Fair Clinical Impression: Hematemesis GI bleed Qualifiers: GI bleed type/associated pathology: unspecified gastrointestinal hemorrhage type Qualified Code(s): K92.2 - Gastrointestinal hemorrhage, unspecified - Discharge Information *PRESCRIPTION DRUG MONITORING PROGRAM REVIEWED*: No *COPY OF PRESCRIPTION DRUG MONITORING REPORT IN PATIENT SRAVANTHI: No Referrals: PCP,None [Primary Care Provider] - Forms: ED Department Discharge Additional Instructions: Transfer ALS to [facility], Dr. Grey accepting physician. Sepsis Event Note (ED) - Evaluation Sepsis Screening Result: No Definite Risk - Focused Exam Vital Signs: Vital Signs Temp Pulse Resp BP Pulse Ox 11/02/20 03:19 97.2 F 74 16 141/49 H 93 L 11/02/20 02:23 97.6 F 77 16 111/51 L 94 L - My Orders Last 24 Hours: My Active Orders 11/02/20 02:45 Abdomen Pelvis w Cont [CT] Stat 11/02/20 04:00 cefTRIAXone [Rocephin] 1 gm IVPUSH Q24H - Assessment/Plan Last 24 Hours: My Active Orders 11/02/20 02:45 Abdomen Pelvis w Cont [CT] Stat 11/02/20 04:00 cefTRIAXone [Rocephin] 1 gm IVPUSH Q24H
[2020-11-02] MEDS ORDERED: Pantoprazole 40 MG Vial IVPUSH ONE (03:52)
[2020-11-02] MEDS ORDERED: cefTRIAXone 1 GM Vial IVPUSH SCH (04:00)
[2020-11-02] MEDS ORDERED: Sodium Chloride 0.9% 1,000 ML IV SCH (04:30)
[2020-11-02 05:10] VITALS: BP 130/69; PULSE 92
[2020-11-02] MEDS ORDERED: Ondansetron 4 MG/2 ML SDV IVPUSH PRN (05:25)
[2020-11-02] MEDS ORDERED: Ondansetron 4 MG/2 ML SDV ONE (05:58)
== END 2020-11-02 05:40 ==
LOC: CC.ED 02:22
DX: K92.2 Gastrointestinal hemorrhage, unspecified (principal); K92.0 Hematemesis; E78.00 Pure hypercholesterolemia, unspecified; I10 Essential (primary) hypertension; E11.9 Type 2 diabetes mellitus without complications; Z79.84 Long term (current) use of oral hypoglycemic drugs; Z79.899 Other long term (current) drug therapy
CPT/HCPCS: 36415; 74177; 80053; 81001; 82150; 83690; 85025; 86140; 96374; 96375; 99284; 99285-25; C9113; J0696; J2405; J7030; Q9967

== ENCOUNTER 2020-11-18 06:44 | Emergency (ER) | payer MEDICARE, OTHER, MEDICAID ==
[2020-11-18 06:49] VITALS: BP 119/60; PULSE 59
[2020-11-18] MEDS: Morphine 4 MG/ML VIAL IVPUSH ONE (07:35)
[2020-11-18] MEDS: Ondansetron 4 MG/2 ML SDV IVPUSH PRN (07:35)
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
[2020-11-18] MEDS: Iopamidol 755 Mg/ML 100 ML Bottle IVPUSH ONE ×2 (07:47→07:48)
[2020-11-18] MEDS ORDERED: Sodium Chloride 0.9% 500 ML IV SCH (08:00)
== END 2020-11-18 11:07 ==
LOC: CC.ED 06:44
DX: K80.70 Calculus of gallbladder and bile duct without cholecystitis without obstruction (principal); K70.31 Alcoholic cirrhosis of liver with ascites; E78.00 Pure hypercholesterolemia, unspecified; I10 Essential (primary) hypertension; E11.9 Type 2 diabetes mellitus without complications; Z79.84 Long term (current) use of oral hypoglycemic drugs; Z79.899 Other long term (current) drug therapy
CPT/HCPCS: 36415; 74177; 80053; 81001; 82150; 83690; 85025; 96374; 96375; 99284; 99285-25; J2270; J2405; Q9967

== ENCOUNTER 2020-12-25 10:55 | Emergency (ER) | payer MEDICARE, OTHER, MEDICAID ==
[2020-12-25 11:08] VITALS: BP 121/65; PULSE 65
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
[2020-12-25] MEDS ORDERED: Furosemide 40 MG/4 ML VIAL IVPUSH ONE (12:53)
[2020-12-25] MEDS ORDERED: Calcium Gluconate 10% 1 GM/10 ML SDV IVPUSH ONE (12:53)
[2020-12-25] MEDS ORDERED: Sodium Polystyrene Sulfonate 15 GM/60 ML Susp 60 ML Bot PO ONE (12:53)
[2020-12-25] MEDS ORDERED: Sodium Chloride 0.9% 1,000 ML IV SCH (13:00)
== END 2020-12-25 13:30 ==
LOC: CC.ED 10:55
DX: K70.31 Alcoholic cirrhosis of liver with ascites (principal); F10.20 Alcohol dependence, uncomplicated; E87.1 Hypo-osmolality and hyponatremia; E87.5 Hyperkalemia; N17.9 Acute kidney failure, unspecified; E78.00 Pure hypercholesterolemia, unspecified; I10 Essential (primary) hypertension; E11.9 Type 2 diabetes mellitus without complications; Z79.84 Long term (current) use of oral hypoglycemic drugs; Z79.899 Other long term (current) drug therapy
CPT/HCPCS: 36415; 80053; 82140; 85025; 85610; 93005; 93010; 96365; 96375; 99284; 99285; A9270; J0610; J1940; J7030